=== PATIENT | male | born 1960 | race Caucasian/White ===

== ENCOUNTER 2017-01-03 18:16 | Emergency (ER) | payer OTHER | END 2017-01-03 19:10 | disposition home or self-care (01) | LOC: ER1 18:16 | DX: Z76.0 Encounter for issue of repeat prescription (principal); Z91.14 Patient's other noncompliance with medication regimen; S41.112A Laceration without foreign body of left upper arm, initial encounter; I10 Essential (primary) hypertension; E11.9 Type 2 diabetes mellitus without complications; W26.8XXA Contact with other sharp object(s), not elsewhere classified, initial encounter | CPT/HCPCS: 99281 ==

== ENCOUNTER 2021-12-25 19:28 | Inpatient (IN) | payer OTHER ==
[~2021-12-25] VITALS: Ht 180.3 cm; Wt 99.8 kg
[2021-12-25 20:37] LABS: BUN/CREATININE RATIO 11 (0-10)
[2021-12-25 20:58] LABS: HEMOGLOBIN 11.9 gm/dl (14.0-17.5); RED BLOOD COUNT 4.03 M/UL (4.20-5.50); WHITE BLOOD COUNT 28.7 K/UL (4.5-11.0)
[2021-12-26 03:15] LABS: HEMOGLOBIN 12.3 gm/dl (14.0-17.5); RED BLOOD COUNT 4.2 M/UL (4.20-5.50)
[2021-12-26 04:04] LABS: BUN/CREATININE RATIO 9 (0-10)
[2021-12-26] MEDS ORDERED: BACLOFEN10 MG PO (11:46)
[2021-12-26] MEDS ORDERED: ATENOLOL25 MG PO (11:46)
[2021-12-26] MEDS ORDERED: BUSPIRONE HCL10 MG PO (11:48)
[2021-12-26] MEDS ORDERED: HYDROCHLOROTHIA25 MG PO (11:48)
[2021-12-26] MEDS ORDERED: METFORMIN HCL1000 MG PO (11:49)
[2021-12-26] MEDS ORDERED: LISINOPRIL40 MG PO (11:49)
[2021-12-26] MEDS ORDERED: SIMVASTATIN20 MG PO (11:50)
[2021-12-26] MEDS ORDERED: JANUVIA100 MG PO (11:51)
[2021-12-26] MEDS ORDERED: CARBIDOPA-LEVO1 EAC1 PO (11:51)
[2021-12-26] MEDS ORDERED: CITALOPRAM HBR40 MG PO (11:52)
[2021-12-26] MEDS ORDERED: LANTUS SOL100 UNIT/1 SQ (11:53)
[2021-12-26] MEDS ORDERED: ASPIRIN325 MG PO (11:53)
[2021-12-26] MEDS ORDERED: CYCLOBENZAPRINE10 MG PO (11:54)
[2021-12-26] MEDS ORDERED: VISTARIL50 MG PO (11:55)
[2021-12-26] MEDS ORDERED: IBUPROFEN800 MG PO (11:56)
[2021-12-26] MEDS ORDERED: TRAZODONE HCL50 MG PO (11:56)
[2021-12-26] MEDS ORDERED: NEURONTIN400 MG PO ×2 (11:58→12:14)
[2021-12-26] MEDS ORDERED: FAMOTIDINE20 MG PO (11:59)
[2021-12-26] MEDS ORDERED: NITROGLYCERIN0.4 MG SL (12:01)
[2021-12-27 07:15] LABS: BUN/CREATININE RATIO 11 (0-10)
[2021-12-27] MEDS ORDERED: CARBIDOPA-LEVO1 EA14 PO (13:24)
[2021-12-28 05:07] LABS: HEMOGLOBIN 13.4 gm/dl (14.0-17.5)
[2021-12-28 05:09] LABS: RED BLOOD COUNT 4.66 M/UL (4.20-5.50); WHITE BLOOD COUNT 10.9 K/UL (4.5-11.0)
[2021-12-28 06:52] LABS: BUN/CREATININE RATIO 13 (0-10)
[2021-12-29 10:02] LABS: BUN/CREATININE RATIO 22 (0-10)
[2021-12-30 05:49] LABS: HEMOGLOBIN 11.3 gm/dl (14.0-17.5); RED BLOOD COUNT 3.9 M/UL (4.20-5.50); WHITE BLOOD COUNT 10.1 K/UL (4.5-11.0)
[2021-12-30 06:11] LABS: BUN/CREATININE RATIO 18 (0-10)
[2021-12-31 04:18] LABS: HEMOGLOBIN 11.1 gm/dl (14.0-17.5); RED BLOOD COUNT 3.9 M/UL (4.20-5.50); WHITE BLOOD COUNT 9.5 K/UL (4.5-11.0)
[2021-12-31 04:38] LABS: BUN/CREATININE RATIO 25 (0-10)
[2022-01-01 04:25] LABS: HEMOGLOBIN 11.3 gm/dl (14.0-17.5); RED BLOOD COUNT 3.95 M/UL (4.20-5.50); WHITE BLOOD COUNT 8.1 K/UL (4.5-11.0)
[2022-01-01 04:52] LABS: BUN/CREATININE RATIO 24 (0-10)
--- NOTE | 2022-01-01 12:30 | NUR ---
DRESSING REMOVED, SITE CLEANED WITH NS, ABD REAPPLIED AND KERLIX REAPPLIED OVER CHIN AND CALF FROM ANKLE TO ONE FINGER BREATH BELOW THE KNEE. MODERATE AMOUNT OF SANGUINEOUS EXUDATE NOTED TO ABD PAD. FLOSS DRAIN IN PLACE WITH CANT AMOUNT OF DRAINAGE NOTED AT THIS TIME. SERGICAL WOUND WELL APPROXIMATED EDGES. PT TOLERATED PROCEDURE WELL.
[2022-01-01] MEDS ORDERED: VANCOMYCIN1.25 GM/12 IV (13:58)
[2022-01-01] MEDS ORDERED: CLINDAMYCI900 MG/50 IV (13:58)
[2022-01-01] MEDS ORDERED: HYDROCODON-ACE1 EAC2 PO ×2 (15:02→15:10)
[2022-01-01] MEDS ORDERED: HYDROCODON-ACE1 EAC4 PO (15:52)
--- NOTE | 2022-01-01 22:01 | NUR ---
PATIENT DISCHARGED WITH FAMILY IN WHEELCHAIR TO BE TRANSPORTED HOME VIA PRIVATE VEHICLE
== END 2022-01-01 21:21 | disposition home health service (06) | DRG 854 ==
LOC: ER1 19:28 → MED SURG 4 22:51 → CDU 22:51 → MED SURG 4 12-26 09:05
PROVIDERS: Internal Medicine; Physician Assistant; Physician Assistant Medical; Surgery; ADMIT Internal Medicine
PROC: 3E03329 Introduction of Other Anti-infective into Peripheral Vein, Percutaneous Approach (ICD-10-PCS; 2021-12-25)
PROC: 0K9S0ZZ Drainage of Right Lower Leg Muscle, Open Approach (ICD-10-PCS; principal; 2021-12-28 11:28)
PROC: 02HV33Z Insertion of Infusion Device into Superior Vena Cava, Percutaneous Approach (ICD-10-PCS; 2022-01-01)
PROC: B548ZZA Ultrasonography of Superior Vena Cava, Guidance (ICD-10-PCS; 2022-01-01)
DX: A41.9 Sepsis, unspecified organism (principal); L03.115 Cellulitis of right lower limb; Z20.822 Contact with and (suspected) exposure to COVID-19; T79.A21A Traumatic compartment syndrome of right lower extremity, initial encounter; L02.415 Cutaneous abscess of right lower limb; E87.1 Hypo-osmolality and hyponatremia; E86.0 Dehydration; I10 Essential (primary) hypertension; E11.65 Type 2 diabetes mellitus with hyperglycemia; G20 Parkinson's disease; E11.40 Type 2 diabetes mellitus with diabetic neuropathy, unspecified; E78.5 Hyperlipidemia, unspecified; K59.00 Constipation, unspecified; F17.210 Nicotine dependence, cigarettes, uncomplicated; Z79.82 Long term (current) use of aspirin; Z79.4 Long term (current) use of insulin; Z85.828 Personal history of other malignant neoplasm of skin; Z87.828 Personal history of other (healed) physical injury and trauma
CPT/HCPCS: 36415; 73590; 73702; 80048; 80053; 80202; 82550; 82553; 82962; 83036; 83605; 83735; 83930; 83935; 84100; 84300; 84439; 84443; 84484; 85025; 86140; 87040; 87070; 87081; 87205; 93971; 96365; 96366; 96375; 96376; 99285; C1751; J0360; J0696; J1100; J1650; J2001; J2270; J2405; J2704; J3010; J3370; J7070; J7120; Q9967; U0002